=== PATIENT | female | born 1995 | race Caucasian/White ===

== ENCOUNTER → 2023-12-10 | Outpatient (CLI) | payer OTHER, BC ==
[~2023-12-10] MED LIST: Gadoterate 15 ML VIAL IV ONE
== END ==
LOC: COL.RAD 15:19
DX: E23.6 Other disorders of pituitary gland (principal)
CPT/HCPCS: A9575

== ENCOUNTER → 2024-01-09 | Outpatient (CLI) | payer SELFPAY | LOC: WSPT 15:30 | DX: M25.551 Pain in right hip (principal) ==